=== PATIENT | male | born 1950 | race Caucasian/White ===

== ENCOUNTER → 2021-02-18 | Outpatient (CLI) | payer MEDICARE, BC | LOC: COL.RAD 07:40 | DX: M25.542 Pain in joints of left hand (principal); M25.541 Pain in joints of right hand | CPT/HCPCS: J3301; Q9967 ==

== ENCOUNTER 2021-04-06 19:52 | Emergency (ER) | payer MEDICARE, BC ==
[~2021-04-06] VITALS: Ht 172.7 cm; Wt 86.4 kg
[2021-04-06 20:10] VITALS: TEMP 98.7
[2021-04-06 21:36] VITALS: BP 148/107; PULSE 65
[2021-04-06] MEDS ORDERED: IPRATROPIUM BROM3 M1 IH (22:28)
[2021-04-06] MEDS ORDERED: MONODOX100 PO (22:28)
[2021-04-06] MEDS ORDERED: NEB MC (22:28)
== END 2021-04-06 23:03 | disposition home or self-care (01) ==
LOC: COL.ER 19:52
DX: R05.9 Cough, unspecified (principal); B97.4 Respiratory syncytial virus as the cause of diseases classified elsewhere